=== PATIENT | male | born 1985 | race African-American/Black ===

== ENCOUNTER 2018-10-16 01:53 | Emergency (ER) | payer SELFPAY ==
[~2018-10-16] VITALS: Ht 168.9 cm; Wt 58.8 kg
[2018-10-16] MEDS ORDERED: LORTAB 1010 MG PO (02:58)
[2018-10-16 03:10] VITALS: BP 118/70
== END 2018-10-16 03:21 | disposition home or self-care (01) | DRG 950 ==
LOC: ED 01:53
PROC: 2W3BX1Z Immobilization of Left Upper Arm using Splint (ICD-10-PCS; principal; 2018-10-16)
DX: S51.042 Puncture wound with foreign body of left elbow (principal); Z98.890 Other specified postprocedural states

== ENCOUNTER 2018-11-11 09:06 | Emergency (ER) | payer SELFPAY ==
[~2018-11-11] VITALS: Ht 168.9 cm; Wt 65.0 kg
[~2018-11-11 09:06] MED LIST: LORTAB 1010 MG PO
[2018-11-11 09:31] VITALS: BP 113/66
== END 2018-11-11 09:43 | disposition home or self-care (01) | DRG 950 ==
LOC: ED 09:06
DX: S51.002D Unspecified open wound of left elbow, subsequent encounter (principal); W34.00XD Accidental discharge from unspecified firearms or gun, subsequent encounter; F17.200 Nicotine dependence, unspecified, uncomplicated